=== PATIENT | female | born 1990 | race Two or more races ===

== ENCOUNTER 2017-04-06 05:03 | Emergency (ER) | payer MEDICAID ==
[~2017-04-06] VITALS: Ht 165.1 cm; Wt 80.7 kg
[2017-04-06 05:21] VITALS: BP 123/72
== END 2017-04-06 06:18 | disposition left against medical advice (07) ==
LOC: ER 05:03
DX: H92.01 Otalgia, right ear (principal); Z53.21 Procedure and treatment not carried out due to patient leaving prior to being seen by health care provider

== ENCOUNTER 2017-12-11 13:30 | Emergency (ER) | payer MEDICAID ==
[~2017-12-11] VITALS: Ht 165.1 cm; Wt 79.4 kg
[2017-12-11 15:47] LABS: Basophils # (auto) 0 uL; Basophils % (auto) 0.5 % (0.0-2.0); Eosinophils # (auto) 0 uL; Eosinophils % (auto) 0.3 % (0.0-7.0); Hematocrit 41.1 % (36.0-46.0); Hemoglobin 13.5 g/dL (12.2-16.2); Lymphocytes # (auto) 1.1 uL; Lymphocytes % (auto) 16.3 % (10.0-50.0); Mean Corpuscular Hemoglobin 29.7 pg (28.0-32.0); Monocytes # (auto) 0.6 uL; Monocytes % (auto) 8.6 % (0.0-12.0); Neutrophils # (auto) 5.1 uL; Neutrophils % (auto) 74.3 % (37.0-80.0); Nucleated Red Blood Cells % 0.1 %; Platelet Count (auto) 268 10^3/uL (140-450); Red Blood Cells 4.56 10^6/uL (4.0-5.20); Red Cell Distribution Width 13.9 % (11.8-14.3); White Blood Cell 6.9 10^3/uL (4.4-10.8)
[2017-12-11 22:27] VITALS: BP 135/83
== END 2017-12-11 22:41 | disposition home or self-care (01) ==
LOC: ER 13:30
DX: O23.41 Unspecified infection of urinary tract in pregnancy, first trimester (principal); O26.851 Spotting complicating pregnancy, first trimester; O34.81 Maternal care for other abnormalities of pelvic organs, first trimester; N83.209 Unspecified ovarian cyst, unspecified side; Z3A.01 Less than 8 weeks gestation of pregnancy
CPT/HCPCS: 36415; 76801; 76817; 84702; 85025

== ENCOUNTER 2018-02-25 08:39 | Emergency (ER) | payer MEDICAID ==
[~2018-02-25] VITALS: Ht 165.1 cm; Wt 83.5 kg
[2018-02-25 08:57] VITALS: BP 144/78
== END 2018-02-25 09:43 | disposition home or self-care (01) ==
LOC: ER 08:39
DX: J02.9 Acute pharyngitis, unspecified (principal)

== ENCOUNTER 2021-04-01 11:34 | Emergency (ER) | payer MEDICAID ==
[~2021-04-01] VITALS: Ht 165.1 cm; Wt 77.1 kg
[2021-04-01 11:38] VITALS: BP 94/60
== END 2021-04-01 12:55 | disposition home or self-care (01) ==
LOC: ER 11:34
DX: S21.03 Puncture wound without foreign body of breast (principal); X58.XXXD Exposure to other specified factors, subsequent encounter

== ENCOUNTER 2021-11-05 11:58 | Emergency (ER) | payer MEDICAID ==
[~2021-11-05] VITALS: Ht 165.1 cm; Wt 77.1 kg
[2021-11-05 16:03] VITALS: BP 127/82
== END 2021-11-05 17:33 | disposition home or self-care (01) ==
LOC: ER 11:58
DX: S43.102A Unspecified dislocation of left acromioclavicular joint, initial encounter (principal); X58.XXXA Exposure to other specified factors, initial encounter; Y93.89 Activity, other specified; Y92.89 Other specified places as the place of occurrence of the external cause; Y99.8 Other external cause status
CPT/HCPCS: 73030

== ENCOUNTER 2024-03-31 05:43 | Emergency (ER) | payer MEDICAID ==
[~2024-03-31] VITALS: Ht 165.1 cm; Wt 79.5 kg
[2024-03-31 05:56] VITALS: TEMP 98.4
[2024-03-31] MEDS ORDERED: PRED20TA2 PO (06:53)
[2024-03-31] MEDS ORDERED: IBUP1TAB5 PO (06:53)
[2024-03-31] MEDS: methylPREDNISolone SOD SUCC 125 MG/2 ML VL IM ONE (06:54)
[2024-03-31] MEDS: KETOROLAC TROMETH 30 MG/ML 1ML VIAL IM ONE (06:55)
[2024-03-31] MEDS: SODIUM CHLORIDE 0.9% 1,000 ML IV ONE (08:22)
[2024-03-31] MEDS: DEXTROSE (50%) 50ML SYRG IV ONE (08:51)
[2024-03-31] MEDS: MECLIZINE HCL 25 MG TAB PO ONE (08:51)
[2024-03-31 09:25] LABS: Basophils # (auto) 0 10 ^3/uL (0-0.2); Basophils % (auto) 0.2 % (0.0-2.0); Eosinophils # (auto) 0 10 ^3/uL (0-0.8); Eosinophils % (auto) 0.3 % (0.0-7.0); Hematocrit 37.8 % (36.0-46.0); Hemoglobin 12.5 g/dL (12.2-16.2); Lymphocytes # (auto) 0.9 10 ^3/uL (0.4-5.4); Lymphocytes % (auto) 11.9 % (10.0-50.0); Mean Corpuscular Hemoglobin 29.4 pg (28.0-32.0); Mean Corpuscular Hgb Conc. 33.1 g/dL (32.0-36.0); Mean Corpuscular Volume 88.9 fL (80.0-100.0); Monocytes # (auto) 0.2 10 ^3/uL (0-1.3); Monocytes % (auto) 2.3 % (0.0-12.0); Neutrophils # (auto) 6.8 10 ^3/uL (1.6-8.6); Neutrophils % (auto) 85.3 % (37.0-80.0); Red Blood Cells 4.25 10^6/uL (4.0-5.20); Red Cell Distribution Width 12.8 % (11.8-14.3)
[2024-03-31 09:32] LABS: Urine Bacteria FEW /hpf (None Seen); Urine Blood 3+ /uL (Negative); Urine Clarity Turbid (Clear); Urine Color Light-Yellow (Yellow); Urine Mucus FEW (None Seen); Urine Protein, UAD Negative (Negative); Urine Specific Gravity 1.012 (1.001-1.035); Urine Urobilinogen Normal (Negative); Urine WBC 1 /hpf (0 - 5); Urine pH 5.5 (5.0-9.0)
[2024-03-31 09:35] LABS: Alanine Aminotransferase 13 U/L (7-40); Albumin 3.8 g/dL (3.2-4.8); Alkaline Phosphatase 62 U/L (46-116); Anion Gap 6 (5-15); Aspartate Aminotransferase 14 U/L (13-40); BUN/Creatinine Ratio 14.3 (10.0-20.0); Bilirubin, Total 0.3 mg/dL (0.2-1.0); Blood Urea Nitrogen 10 mg/dL (9-23); Calcium 8.6 mg/dL (8.5-10.1); Carbon Dioxide 21 mmol/L (20-30); Chloride 109 mmol/L (98-107); Glucose 273 mg/dL (74-106); Sodium 136 mmol/L (136-145); Total Protein 6.2 g/dL (5.7-8.2)
[2024-03-31 12:53] VITALS: BP 104/50; PULSE 98; RESP 16; O2SAT 98
== END 2024-03-31 13:06 | disposition home or self-care (01) ==
LOC: ER 05:43
DX: M54.16 Radiculopathy, lumbar region (principal)
CPT/HCPCS: 36415; 80053; 81001; 81025; 82962; 84484; 85025; 96361; 96372; 96374; 99285; J1885; J2919; J7030; J8597